=== PATIENT | male | born 1940 | race Caucasian/White ===

== ENCOUNTER 2023-05-08 10:25 | Emergency (ER) | payer OTHER, MEDICARE ==
[~2023-05-08] VITALS: Ht 185.4 cm; Wt 107.0 kg
[2023-05-08 10:28] VITALS: BP_SYST 182; PULSE 82; RESP 18; TEMP 97.8; O2SAT 96
[2023-05-08] MEDS ORDERED: ASPIRIN 325 MG TABLET (ECOTRIN) PO ONE (10:44)
[2023-05-08] MEDS ORDERED: ASPIRIN 325 MG TABLET PO ONE (10:45)
[2023-05-08] MEDS ORDERED: NITROGLYCERIN 1 INCH (GM) OINT. TP ONE (10:45)
--- NOTE | 2023-05-08 10:45 | NUR ---
PT BIB SELF AWAKE AND ALERT AOX4. PT C/O CHEST PAIN 03/24 SINCE 399 TODAY. PT HAS HX OF HTN, DM2, HLD. EKG WAS COMPLETED IN TRIAGE SHOWING STEMI.
--- NOTE | 2023-05-08 10:46 | NUR ---
PT PLACED IN ROOM 5
--- NOTE | 2023-05-08 10:46 | NUR ---
MD DR ELIZONDO AT BEDSIDE
--- NOTE | 2023-05-08 10:46 | NUR ---
REPEAT EKG WAS COMPLETED. SHOWING STEMI
[2023-05-08] MEDS ORDERED: NITROGLYCERIN 1 INCH (GM) OINT. ONE (10:47)
--- NOTE | 2023-05-08 10:47 | NUR ---
PT GIVEN 324 ASA, 4 MG MORPHINE, 2 LPM NC, NITRO PASTE 1 INCH.
--- NOTE | 2023-05-08 10:48 | NUR ---
PT TO BE TRANSFERED TO [facility] FOR FURTHER EVAL.
[2023-05-08] MEDS ORDERED: MORPHINE 4 MG INJ. 4 MG/ML VIAL ONE (10:52)
--- NOTE | 2023-05-08 11:00 | NUR ---
Patient to be transferred to [facility]. Is being transferred due to higher level of care. Receiving facility has accepting physician and available space. ER physician has signed transfer form. Patient or responsible constitution party has agreed to transfer and signed form. Patient belongings inventoried and will be sent with patient. Copy of nursing notes, lab reports, EKG, Physicians Orders and X-rays to be sent with patient. Report called to CHARGE NURSE at receiving facility. Receiving physician is REESE. [facility] ambulance service has been called for transfer. ETA is .
--- NOTE | 2023-05-08 11:00 | NUR ---
PT PICKED UP BY 911 FOR TRANSPORT TO [facility]
[2023-05-08 11:06] LABS: BASOPHILS # (AUTO) 0.1 K/uL (0.0-0.2); BASOPHILS % (AUTO) 0.7 % (0.0-2.0); EOSINOPHILS # (AUTO) 0.7 K/uL (0.0-0.4); EOSINOPHILS % (AUTO) 5.1 % (0.0-4.0); HEMATOCRIT 46.8 % (36-54); HEMOGLOBIN 15.5 g/dL (14.0-18.0); LYMPHOCYTES # (AUTO) 6.1 K/uL (1.0-5.5); MEAN CORPUSCULAR HEMOGLOBIN 30 pg (27-31); MEAN CORPUSCULAR HGB CONC 33 % (32-36); MEAN CORPUSCULAR VOLUME 91 fL (79.0-98.0); MONOCYTES # (AUTO) 1.2 K/uL (0.0-1.0); MONOCYTES % (AUTO) 8.2 % (1.7-9.3); NEUTROPHILS # (AUTO) 6.4 K/uL (1.8-7.7); PLATELET COUNT (AUTO) 194 K/uL (130-430); RED BLOOD CELL COUNT(AUTO) 5.18 MIL/uL (4.2-6.2); RED CELL DISTRIBUTION WIDTH 12.9 % (9.0-15.0); WHITE BLOOD COUNT (AUTO) 14.5 K/uL (4.8-10.8)
[2023-05-08 11:21] LABS: ANION GAP 11 (5-15); CALCIUM 9.3 mg/dL (8.4-11.0); CHLORIDE 99 mmol/L (98-107); CREATININE 1.53 mg/dL (0.55-1.30); GLUCOSE 265 mg/dL (74-106); UREA NITROGEN, BLOOD 21 mg/dL (8-21)
[2023-05-08 11:22] VITALS: BP_SYST 164; PULSE 74; RESP 18; TEMP 97.3; O2SAT 98
[2023-05-08 11:25] LABS: ALANINE AMINOTRANSFERASE 28 U/L (12-78); ALBUMIN 3.8 g/dL (3.4-4.8); ASPARTATE AMINOTRANSFERASE 30 U/L (10-37); TOTAL BILIRUBIN 0.8 mg/dL (0.0-1.0)
[2023-05-08 11:27] LABS: INR 1.1 (0.80-1.20)
[2023-05-08] MEDS ORDERED: MORPHINE 4 MG INJ. 4 MG/ML VIAL IVP ONE (23:30)
== END 2023-05-08 11:00 | disposition home or self-care (01) ==
LOC: SED 10:25
DX: I21.9 Acute myocardial infarction, unspecified (principal); R07.9 Chest pain, unspecified; E11.9 Type 2 diabetes mellitus without complications; I10 Essential (primary) hypertension; Z79.899 Other long term (current) drug therapy
CPT/HCPCS: 99291; 96374; 80053; 83880; 85025; 85379; 85610; 85730; 84484; 36415; 93005; J2270